=== PATIENT | male | born 1945 | race Caucasian/White ===

== ENCOUNTER 2023-08-31 23:48 | Emergency (ER) | payer MEDICARE, OTHER ==
[~2023-08-31] VITALS: Ht 182.9 cm; Wt 68.0 kg
[2023-09-01 00:19] LABS: BASOPHILS # (AUTO) 0.1 K/UL (0.0-0.2); EOSINOPHILS % (AUTO) 0.2 % (0.0-7.0); HEMATOCRIT 37.2 % (36.7-47.1); HEMOGLOBIN 12.2 g/dL (12.5-16.3); LYMPHOCYTES # (AUTO) 1.3 K/uL (0.8-4.8); MEAN CORPUSCULAR HEMOGLOBIN 30.3 uug (23.8-33.4); MEAN CORPUSCULAR HGB CONC 33 g/dL (32.5-36.3); MEAN CORPUSCULAR VOLUME 92.2 fL (73.0-96.2); MONOCYTES # (AUTO) 1.5 K/uL (0.1-1.30); NEUTROPHILS # (AUTO) 5.1 K/uL (1.8-8.9); NEUTROPHILS % (AUTO) 63.9 % (38.5-71.5); PLATELET COUNT (AUTO) 179 K/uL (152-348); RED BLOOD CELL COUNT(AUTO) 4.04 MIL/uL (4.06-5.63); RED CELL DISTRIBUTION WIDTH 13.7 % (12.1-16.2); WHITE BLOOD COUNT (AUTO) 7.9 K/uL (3.6-10.2)
[2023-09-01 00:20] LABS: DIFFERENTIAL COMMENT 1
[2023-09-01 00:21] LABS: LYMPHOCYTES % (AUTO) 20.9 % (20.5-51.5)
[2023-09-01] MEDS ORDERED: INSU100V7 SQ (00:21)
[2023-09-01] MEDS ORDERED: HYDR-4075 PO (00:21)
[2023-09-01] MEDS ORDERED: novolog SUBCUT (00:21)
[2023-09-01] MEDS ORDERED: METO100T14 PO (00:21)
[2023-09-01] MEDS ORDERED: PRAS10TA5 PO (00:21)
[2023-09-01 00:29] LABS: ALANINE AMINOTRANSFERASE 17 U/L (16-63); ALBUMIN 3.2 g/dL (3.4-5.0); ALKALINE PHOSPHATASE 78 U/L (50-136); ASPARTATE AMINOTRANSFERASE 14 U/L (15-37); BILIRUBIN,DIRECT 0.1 mg/dL (0.0-0.2); BILIRUBIN,TOTAL 0.5 mg/dL (0.2-1.0); CALCIUM 8.7 mg/dL (8.5-10.1); CARBON DIOXIDE 24 mmol/L (21-32); CHLORIDE 96 mmol/L (98-107); CREATININE 2.6 mg/dL (0.6-1.3); GLUCOSE 190 mg/dL (74-106); POTASSIUM 3.5 mmol/L (3.5-5.1); SODIUM SERUM 131 mmol/L (136-145); UREA NITROGEN, BLOOD 45 mg/dL (7-18)
[2023-09-01] MEDS ORDERED: AZIT250T13 PO ×2 (01:55→02:26)
[2023-09-01 02:39] VITALS: BP 112/66; O2SAT 94
== END 2023-09-01 02:33 | disposition home or self-care (01) ==
LOC: ER 23:53
DX: U07.1 COVID-19 (principal); R07.89 Other chest pain; Z79.4 Long term (current) use of insulin; Z79.2 Long term (current) use of antibiotics; Z79.899 Other long term (current) drug therapy
CPT/HCPCS: 36415; 71045; 84484; 85025; 93005; A4606; A4663; J7040